=== PATIENT | female | born 1960 | race Caucasian/White ===

== ENCOUNTER 2020-08-16 21:00 | Emergency (ER) | payer OTHER, SELFPAY ==
--- NOTE | ~2020-08-16 | XR_ITS ---
EXAMINATION: CHEST 2 VIEWS CLINICAL INFORMATION: Shortness of breath. COMPARISON: None. TECHNIQUE: PA and lateral views of the chest were obtained. FINDINGS: The cardiac silhouette is not enlarged. The mediastinal and hilar contours are unremarkable. There are neither pleural effusions nor pneumothoraces. There are no consolidations. Surgical clips overlie the left chest wall. The osseous structures are unremarkable. XR/XR chest 2V IMPRESSION: No evidence for acute disease.
[2020-08-16 21:19] VITALS: BP 121/74; PULSE 81; RESP 30; TEMP 36.6; O2SAT 95; BMI 21.1
[2020-08-16 22:00] VITALS: PULSE 78; RESP 16; O2SAT 99
--- NOTE | 2020-08-16 22:56 | ED.BURNSMOKE ---
HPI - Burn/Smoke Inhalation General Chief complaint: Burn/Smoke Inhalation Stated complaint: smoke inhlation Time Seen by Provider: 08/16/20 21:55 Source: patient Mode of arrival: ambulatory History of Present Illness HPI Narrative: 60-year-old female with no significant past medical history presenting to the ED with for suspected carbon monoxide poisoning. States they ate dinner at [employer] at the mall, and after dinner were standing outside by gas fireplaces, and then developed throat itching/dryness, and SOB. Admits to eating fish which she has seen in the past, denies known allergens or rash. Denies throat pain/throat closing sensation, SOB, rash, CP, cough, fever Related Data Allergies Allergy/AdvReac Type Severity Reaction Status Date / Time No Known Allergies Allergy Unverified 08/16/20 22:06 Review of Systems Review of Systems: Constitutional: No Fever, No Chills ENT/Mouth: No Hoarseness, No sore throat, No Swallowing Difficulty Cardiovascular: No Chest Pain, + SOB Respiratory: + Cough Skin: No Skin Lesions, No rash Yes all other systems are reviewed and are negative [facility] Past Medical History Attestation statement: The following information was validated with the patient. Social History Social History Alcohol intake: never Smoking Status: Never smoker Smoked in Last 30 Days: No Use of substances other than those prescribed or required for medical reasons: No Advance Directives: No Advance Directives Information Provided: No Physical Exam Vital Signs: Vital Signs: Last Vital Signs Temp 97.9 F 08/16/20 21:19 Pulse 78 08/16/20 22:00 Resp 16 08/16/20 22:00 BP 121/74 08/16/20 21:19 Pulse Ox 99 08/16/20 22:00 Body Mass Index 21.1 Const: General: cooperative, healthy appearing, comfortable, no acute distress and anxious Orientation/consciousness: patient oriented x3 Limitations: no limitations HENMT: Head: Yes normal to inspection Ears: hearing grossly normal bilaterally General nose exam: Normal external nose present Face and sinus: Yes normal facial exam Mouth: Normal oral and palatal mucosa present Throat: Yes posterior oropharynx normal, Yes tonsils normal, Yes uvula midline, No peritonsillar mass and No uvular edema Eyes: General: appearance normal, both eyes and all related structures EOM: EOMs intact bilaterally Neck: Neck: Yes normal visual inspection Resp: Effort & Inspection: normal respiratory effort and no stridor Auscultation: clear to auscultation bilaterally, no rales, no rhonchi and no wheezes Cardio: Rate: regular rate Heart sounds: S1 normal heart sound present and S2 normal heart sound present GI: Inspection: Yes normal to inspection Skin: Rashes: no rashes Wounds: no wounds Neuro: General: patient oriented x3 Extrem: General: Yes normal to inspection Course Course Course Narrative: -CXR unremarkable. Patient would like to sign out AMA. Do not want carboxyhemoglobin test. Reports symptomatic resolution in the ED. A&O x3, competent to make own decisions, AMA paperwork signed and risks discussed MDM - Burn/Smoke Inhalation MDM Narrative Medical decision making narrative: On exam NAD, well appearing, anxious, initially take care clinic likely from anxiety. Lungs CTA, no signs of respiratory distress, no intraoral swelling. Possible carbon monoxide poisoning vs allergic reaction Discharge Plan Discharge Interventions: ED Discharge Assessment Last Done: 08/16/20 23:00
--- NOTE | 2020-08-16 22:59 | PC.NURSE ---
PATIENT REFUSING BLOOD WORK ASKING TO LEAVE AGAINST MEDICAL ADVICE. AMA FORM SIGNED AND WITNESSED BY THIS RN AND PROVIDER SWATI TAMAYO. PATIENT STATING FEELING MUCH BETTER WITH NO DISTRESS NOTED. MELANIE COUGH OR SOB, OR DIZZINESS. SYMPTOMS FULLY RESOLVING. AMBULATING STEADILY.
== END 2020-08-16 23:00 | disposition left against medical advice (07) ==
PROVIDERS: Emergency Provider Emergency Medicine; PCP Internal Medicine
DX: T58.91XA Toxic effect of carbon monoxide from unspecified source, accidental (unintentional), initial encounter (principal); X58.XXXA Exposure to other specified factors, initial encounter; R06.02 Shortness of breath
CPT/HCPCS: 71046; 99283; 99284